=== PATIENT | female | born 1950 | race American Indian/Alaskan Native ===

== ENCOUNTER 2017-06-17 17:29 | Emergency (ER) | payer OTHER ==
[2017-06-17 18:01] VITALS: RESP 16; TEMP 97.9; O2SAT 98
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
[2017-06-17] MEDS ORDERED: Naproxen 550 mg Tab PO STA (18:13)
[2017-06-17] MEDS ORDERED: Naproxen 550 mg Tab PO ONE (18:24)
[2017-06-17 19:53] VITALS: BP 120/79; PULSE 81
--- NOTE | 2017-06-18 09:01 | RAD ---
PROCEDURE: Radiographs of the Lumbar Spine. HISTORY: low back pain after fall COMPARISON: No prior. FINDINGS: BONES: Normal alignment. No listhesis. No fracture. 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 DISC SPACES: Unremarkable. OTHER FINDINGS: Mild iliac sided right sclerotic arthrosis Multiple calcified uterine fibroids. Few inferior phleboliths IMPRESSION: No lumbar fracture. Inferior facet arthrosis. Minimal right sclerotic SI joint arthrosis Multiple calcified uterine fibroids
--- NOTE | 2017-06-18 09:06 | RAD ---
PROCEDURE: Radiographs of the left elbow. HISTORY: elbow pain s/p fall COMPARISON: No prior. FINDINGS: BONES: . No fracture. Medial ulnar spurring JOINTS: Mild ulna humeral osteoarthritis. SOFT TISSUES: Prominent panniculus upper arm JOINT EFFUSION: None. OTHER FINDINGS: None IMPRESSION: No fracture Mild ulna humeral osteoarthritis.
--- NOTE | 2017-06-18 09:11 | RAD ---
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 Multiple calcified uterine fibroid and few inferior phleboliths noted. Minimal -mild right iliac sided sclerotic arthrosis. Bilateral superolateral hip joint space narrowing. Possible calcific bursitis or right gluteal calcific tendinopathy -greater trochanter bordering Soft tissue ossific foci over each lateral upper thigh noted- myositis ossifications inferred. This smaller focus in the most superior proximal thigh may be a low gluteal injection granuloma IMPRESSION: No fracture or dislocation. 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
--- NOTE | 2017-06-18 09:16 | RAD ---
PROCEDURE: Radiographs of the Right Shoulder HISTORY: s/p fall, r/o fx COMPARISON: No prior. FINDINGS: BONES: No fracture. JOINTS: . Glenohumeral joint normal appearing . Acromioclavicular minimal joint space narrowing SOFT TISSUES: Normal. OTHER FINDINGS: None. IMPRESSION: No fracture or dislocation. Minimal degenerative changes -acromioclavicular joint
== END 2017-06-17 19:52 | disposition home or self-care (01) ==
LOC: C.ER 17:29
DX: S43.401A Unspecified sprain of right shoulder joint, initial encounter (principal); S33.5XXA Sprain of ligaments of lumbar spine, initial encounter; S73.102A Unspecified sprain of left hip, initial encounter; S53.402A Unspecified sprain of left elbow, initial encounter; W18.30XA Fall on same level, unspecified, initial encounter; Y92.512 Supermarket, store or market as the place of occurrence of the external cause